=== PATIENT | male | born 1950 | race Two or more races ===

== ENCOUNTER 2018-04-04 08:46 | Outpatient (CLI) | payer OTHER ==
[~2018-04-04] VITALS: Ht 172.7 cm; Wt 106.1 kg
== END 2018-04-04 09:00 | disposition home or self-care (01) ==
LOC: OFIC 805 08:46
DX: D11.0 Benign neoplasm of parotid gland (principal); R22.1 Localized swelling, mass and lump, neck; J34.2 Deviated nasal septum; E66.8 Other obesity; E04.2 Nontoxic multinodular goiter

== ENCOUNTER 2018-05-23 08:53 | Outpatient (CLI) | payer OTHER ==
[~2018-05-23] VITALS: Ht 152.4 cm; Wt 106.1 kg
== END 2018-05-23 09:15 | disposition home or self-care (01) ==
LOC: OFIC 805 08:53
DX: D11.0 Benign neoplasm of parotid gland (principal); R22.1 Localized swelling, mass and lump, neck; J34.2 Deviated nasal septum; E66.8 Other obesity; E04.2 Nontoxic multinodular goiter

== ENCOUNTER 2018-10-24 08:57 | Outpatient (CLI) | payer OTHER ==
[~2018-10-24] VITALS: Ht 152.4 cm; Wt 104.3 kg
== END 2018-10-24 09:15 | disposition home or self-care (01) ==
LOC: OFIC 805 08:57 → EDBD 08:57 → OFIC 805 09:15
DX: D11.0 Benign neoplasm of parotid gland (principal); R22.1 Localized swelling, mass and lump, neck; J34.2 Deviated nasal septum; E04.2 Nontoxic multinodular goiter; E66.8 Other obesity

== ENCOUNTER 2018-11-28 09:56 | Outpatient (CLI) | payer OTHER ==
[~2018-11-28] VITALS: Ht 152.4 cm; Wt 103.9 kg
[2018-12-05] MEDS ORDERED: SINGULAIR10 MG PO (11:02)
[2018-12-05] MEDS ORDERED: METFOR PO (11:02)
[2018-12-05] MEDS ORDERED: SIMBICORT IN (11:03)
== END 2018-11-28 13:49 | disposition home or self-care (01) ==
LOC: OFIC 805 09:56
DX: D11.0 Benign neoplasm of parotid gland (principal); R22.1 Localized swelling, mass and lump, neck; J34.2 Deviated nasal septum; E04.2 Nontoxic multinodular goiter; J44.9 Chronic obstructive pulmonary disease, unspecified; J45.998 Other asthma

== ENCOUNTER 2018-12-11 07:10 | Day surgery (SDC) | payer OTHER ==
[~2018-12-11 07:10] MED LIST: METFOR PO; SIMBICORT IN; SINGULAIR10 MG PO
== END 2018-12-11 17:52 | disposition home or self-care (01) ==
LOC: CIR.AMB 07:10
DX: D11.0 Benign neoplasm of parotid gland (principal)

== ENCOUNTER 2018-12-19 10:08 | Outpatient (CLI) | payer OTHER ==
[~2018-12-19] VITALS: Ht 152.4 cm; Wt 103.9 kg
== END 2018-12-19 12:52 | disposition home or self-care (01) ==
LOC: OFIC 805 10:08
DX: D11.0 Benign neoplasm of parotid gland (principal); R22.1 Localized swelling, mass and lump, neck; D11.7 Benign neoplasm of other major salivary glands